=== PATIENT | female | born 1985 | race American Indian/Alaskan Native ===

== ENCOUNTER 2019-12-14 16:23 | Emergency (ER) | payer SELFPAY ==
[2019-12-14 16:55] LABS: Basophils # (Auto) 0.1 K/mm3 (0.0-0.1); Basophils % (Auto) 1.5 % (0.0-1.8); Eosinophils % (Auto) 0.3 % (0.0-4.3); Hemoglobin 14.4 gm/dl (10.1-14.3); Lymphocytes # (Auto) 2.2 K/mm3 (1.2-5.4); Lymphocytes % (Auto) 26.4 % (13.4-35.0); Mean Corpuscular HGB Conc 34 % (30-34); Mean Corpuscular Volume 86 fl (79-97); Monocytes # (Auto) 0.6 K/mm3 (0.0-0.8); Monocytes % (Auto) 6.7 % (0.0-7.3); Platelet Count 330 K/mm3 (140-440); Red Blood Count 4.89 M/mm3 (3.65-5.03)
[2019-12-14 17:16] LABS: Alanine Aminotransferase 52 units/L (7-56); Albumin 4.2 g/dL (3.9-5); BUN/Creatinine Ratio 8; Blood Urea Nitrogen 8 mg/dL (7-17); Calcium 9.5 mg/dL (8.4-10.2); Hemolysis Index 7
[2019-12-14] MEDS ORDERED: SODIUM CHLORIDE 0.9% 1000 ML 1,000 ML IV ONE (17:41)
[2019-12-14] MEDS ORDERED: METOCLOPRAMIDE 10 MG/2 ML INJ IV ONE (17:41)
[2019-12-14] MEDS ORDERED: POTASSIUM CHLORIDE ER 20 MEQ TAB PO ONE (17:41)
[2019-12-14] MEDS ORDERED: diphenhydrAMINE 50 MG/ML VIAL IV ONE (17:41)
--- NOTE | 2019-12-14 17:57 | Emergency Department Report ---
ED General Adult HPI - General Chief complaint: Nausea/Vomiting/Diarrhea Stated complaint: NAUSEA/FATIGUE/PREG Time Seen by Provider: 12/14/19 17:07 Source: patient Mode of arrival: Ambulatory Limitations: No Limitations - History of Present Illness Initial comments: Patient is a 34-year-old female presents emergency with complaints of generalized weakness that began 3 days ago. She has associated nausea and vomiting. She states that she is not able to tolerate p.o. intake. She states that a couple days ago she did have some vaginal spotting but that resolved. She states that she is also been constipated. She denies any diarrhea, fever, cough, abdominal pain, chest pain, shortness of breath. No past medical history. No allergies to medications. Last menstrual cycle October 12. She states that she believes she is approximately 2 months . She has not seen anyone for this and does not have an OB doctor. G:/P: 1/A: 2 - Related Data Previous Rx's Medication Instructions Recorded Last Taken Type Metoclopramide [Reglan] 10 mg PO Q8HR PRN #12 tab 12/14/19 Unknown Rx Nitrofurantoin [place]/M-Cryst 100 mg PO Q12HR #14 capsule 12/14/19 Unknown Rx [Macrobid CAP] Allergies Allergy/AdvReac Type Severity Reaction Status Date / Time No Known Allergies Allergy Unverified 12/14/19 16:25 ED Review of Systems ROS: Stated complaint: NAUSEA/FATIGUE/PREG Other details as noted in HPI Comment: All other systems reviewed and negative ED Past Medical Hx - Past Medical History Previous Medical History?: No - Surgical History Past Surgical History?: Yes Additional Surgical History: C section. ovarian cyst - Social History Smoking Status: Never Smoker Substance Use Type: None - Medications Home Medications: Home Medications Medication Instructions Recorded Confirmed Last Taken Type Metoclopramide [Reglan] 10 mg PO Q8HR PRN #12 tab 12/14/19 Unknown Rx Nitrofurantoin [place]/M-Cryst 100 mg PO Q12HR #14 capsule 12/14/19 Unknown Rx [Macrobid CAP] ED Physical Exam - General Limitations: No Limitations General appearance: alert, in no apparent distress - Head Head exam: Present: atraumatic, normocephalic - Eye Eye exam: Present: normal appearance - ENT ENT exam: Present: mucous membranes dry - Respiratory Respiratory exam: Present: normal lung sounds bilaterally. Absent: respiratory distress, wheezes, rales, rhonchi, stridor, chest wall tenderness, accessory muscle use, decreased breath sounds, prolonged expiratory - Cardiovascular Cardiovascular Exam: Present: regular rate, normal rhythm, normal heart sounds. Absent: systolic murmur, diastolic murmur, rubs, gallop - GI/Abdominal GI/Abdominal exam: Present: soft, normal bowel sounds. Absent: distended, tenderness, guarding, rebound, rigid - Neurological Exam Neurological exam: Present: alert, oriented X3 - Psychiatric Psychiatric exam: Present: normal affect, normal mood - Skin Skin exam: Present: warm, dry, intact ED Course Vital Signs 12/14/19 12/14/19 12/14/19 16:27 17:25 17:41 Temperature 98.6 F 98.8 F 98.8 F Pulse Rate 98 H 100 H 100 H Respiratory 20 16 16 Rate Blood Pressure 123/75 122/76 Blood Pressure 122/76 [Left] O2 Sat by Pulse 96 98 98 Oximetry 12/14/19 23:18 Temperature 98.3 F Pulse Rate 87 Respiratory 18 Rate Blood Pressure Blood Pressure 119/63 [Left] O2 Sat by Pulse 100 Oximetry ED Medical Decision Making - Lab Data Result diagrams: 12/14/19 16:45 12/14/19 16:45 Lab Results 12/14/19 12/14/19 12/14/19 Range/Units 16:45 16:45 16:45 WBC 8.3 (4.5-11.0) K/mm3 RBC 4.89 (3.65-5.03) M/mm3 Hgb 14.4 H (10.1-14.3) gm/dl Hct 42.0 (30.3-42.9) % MCV 86 (79-97) fl MCH 29 (28-32) pg MCHC 34 (30-34) % RDW 15.0 (13.2-15.2) % Plt Count 330 (140-440) K/mm3 Lymph % (Auto) 26.4 (13.4-35.0) % [place] % (Auto) 6.7 (0.0-7.3) % Eos % (Auto) 0.3 (0.0-4.3) % Baso % (Auto) 1.5 (0.0-1.8) % Lymph # (Auto) 2.2 (1.2-5.4) K/mm3 [place] # (Auto) 0.6 (0.0-0.8) K/mm3 Eos # (Auto) 0.0 (0.0-0.4) K/mm3 Baso # (Auto) 0.1 (0.0-0.1) K/mm3 Seg Neutrophils % 65.1 (40.0-70.0) % Seg Neutrophils # 5.4 (1.8-7.7) K/mm3 Sodium 132 L (137-145) mmol/L Potassium 3.1 L (3.6-5.0) mmol/L Chloride 91.0 L (98-107) mmol/L Carbon Dioxide 27 (22-30) mmol/L Anion Gap 17 mmol/L BUN 8 (7-17) mg/dL Creatinine 1.0 (0.6-1.2) mg/dL Estimated GFR > 60 ml/min BUN/Creatinine Ratio 8 % Glucose 111 H (65-100) mg/dL Calcium 9.5 (8.4-10.2) mg/dL Total Bilirubin 0.40 (0.1-1.2) mg/dL AST 24 (5-40) units/L ALT 52 (7-56) units/L Alkaline Phosphatase 59 (35-129) units/L Total Protein 7.4 (6.3-8.2) g/dL Albumin 4.2 (3.9-5) g/dL Albumin/Globulin Ratio 1.3 % Lipase 44 (13-60) units/L HCG, Quant [id number] H (0-4) mIU/mL Blood Type 12/14/19 Range/Units 19:12 WBC (4.5-11.0) K/mm3 RBC (3.65-5.03) M/mm3 Hgb (10.1-14.3) gm/dl Hct (30.3-42.9) % MCV (79-97) fl MCH (28-32) pg MCHC (30-34) % RDW (13.2-15.2) % Plt Count (140-440) K/mm3 Lymph % (Auto) (13.4-35.0) % [place] % (Auto) (0.0-7.3) % Eos % (Auto) (0.0-4.3) % Baso % (Auto) (0.0-1.8) % Lymph # (Auto) (1.2-5.4) K/mm3 [place] # (Auto) (0.0-0.8) K/mm3 Eos # (Auto) (0.0-0.4) K/mm3 Baso # (Auto) (0.0-0.1) K/mm3 Seg Neutrophils % (40.0-70.0) % Seg Neutrophils # (1.8-7.7) K/mm3 Sodium (137-145) mmol/L Potassium (3.6-5.0) mmol/L Chloride (98-107) mmol/L Carbon Dioxide (22-30) mmol/L Anion Gap mmol/L BUN (7-17) mg/dL Creatinine (0.6-1.2) mg/dL Estimated GFR ml/min BUN/Creatinine Ratio % Glucose (65-100) mg/dL Calcium (8.4-10.2) mg/dL Total Bilirubin (0.1-1.2) mg/dL AST (5-40) units/L ALT (7-56) units/L Alkaline Phosphatase (35-129) units/L Total Protein (6.3-8.2) g/dL Albumin (3.9-5) g/dL Albumin/Globulin Ratio % Lipase (13-60) units/L HCG, Quant (0-4) mIU/mL Blood Type A POSITIVE - Radiology Data Radiology results: report reviewed [facility]ST[facility] ULTRASOUND HISTORY: Vomiting clinical history of , spotting COMPARISON: None. TECHNIQUE: Routine transabdominal and transvaginal OB ultrasound performed. FINDINGS: Uterus: Mildly enlarged measuring 10.2 x 6.0 x 6.8 cm. Complex intrauterine area adjacent to the gestational sac with some vascular flow measuring 8.2 x 4.0 x 6.3 cm. Gestational Sac: Well-defined oval shape and intrauterine in location. Gestational sac measures 4.7 cm with estimated age of 9 weeks and 6 days. Yolk Sac: Normal in appearance. Fetus/Embryo: [place]-rump length of 1.9 cm, corresponding to an estimated gestational age of 8 weeks and 3 days. Embryonic/ anatomy is too small for evaluation. Embryonic/ cardiac activity: 180bpm Placenta: Too small for evaluation. Amniotic fluid volume: Subjectively appropriate for gestational age. Ovaries: The right ovary is normal in size and appearance with normal blood flow, measuring 3.4 x 3.6 x 2.0 cm. The left ovary is normal in size and appearance with normal blood flow, measuring 3.6 x 3.2 x 3.4 cm. Corpus luteum not definitively visualized. Additional findings: None. IMPRESSION 1. Early live intrauterine with estimated gestational age of 9 weeks and 1 day by ultrasound. 2. 8.2 cm intrauterine complex area adjacent to the gestational sac which could represent a large uterine fibroid. Recommend attention on follow-up and correlation with prior imaging if available. Signer Name: Tony Nicholson MD Signed: 12/14/2019 7:48 PM Workstation Name: [id number] Transcribed By: RAJAN Dictated By: TONY NICHOLSON III Electronically Authenticated By: TONY NICHOLSON III Signed Date/Time: 12/14/191947 DD/ 39 TD/TT: - Medical Decision Making Patient is a 34-year-old female presents emergency with complaints of generalized weakness that began 3 days ago. She has associated nausea and vomiting. She states that she is not able to tolerate p.o. intake. She states that a couple days ago she did have some vaginal spotting but that resolved. She states that she is also been constipated. She denies any diarrhea, fever, cough, abdominal pain, chest pain, shortness of breath. No past medical history. No allergies to medications. Last menstrual cycle October 12. She states that she believes she is approximately 2 months . She has not seen anyone for this and does not have an OB doctor. G:/P: 1/A: 2. Vitals are normal. No abdominal tenderness on exam, no guarding, no rebound, no rigidity, normal bowel sounds. Labs with evidence of dehydration and hypokalemia. hCG quant is [id number]. OB US: 1. Early live intrauterine with estimated gestational age of 9 weeks and 1 day by ultrasound. 2. 8.2 cm intrauterine complex area adjacent to the gestational sac which could represent a large uterine fibroid. Recommend attention on follow-up and correlation with prior imaging if available. UA without evidence of significant UTI, pt has no urinary symptoms. Patient given 1 L IV fluids, Reglan, Benadryl, kdur, Colace. Patient symptoms improved and she was feeling much better and ready to go home. Patient had no further episodes of vomiting while in the emergency [place] she was able to tolerate p.o. intake. Discussed all results with patient and answered questions. Patient given her ultrasound report, discussed the importance of close [facility] follow-up. - Differential Diagnosis Hyperemesis, dehydration, UTI, IUP, ectopic, molar , miscarriage Critical care attestation.: If time is entered above; I have spent that time in minutes in the direct care of this critically ill patient, excluding procedure time. ED Disposition Clinical Impression: Nausea/vomiting in , Dehydration, Hypokalemia Qualifiers: Weeks of gestation: 9 weeks Qualified Code(s): Z3A.09 - 9 weeks gestation of Uterine fibroid Qualifiers: Uterine leiomyoma location: unspecified location Qualified Code(s): D25.9 - Leiomyoma of uterus, unspecified Disposition: DC-01 TO HOME OR SELFCARE Is pt being admited?: No Does the pt Need Aspirin: No Condition: Stable Instructions: (ED), Hyperemesis Gravidarum (ED), Uterine Fibroids (ED) Additional Instructions: please take medication as prescribed. increase your water intake. may take tylenol as needed for any discomfort. please take a vitamin over the counter. follow up with [facility]. it is very important you have close follow up, take your ultrasound report with you. return to the emergency room for any new or worsening symptoms. Prescriptions: Nitrofurantoin [place]/M-Cryst [Macrobid CAP] 100 mg PO Q12HR #14 capsule Metoclopramide [Reglan] 10 mg PO Q8HR PRN #12 tab PRN Reason: Nausea And Vomiting Referrals: [facility] MD STEFANIE [Primary Care Provider] - 2-3 Days [facility] [Provider Group] - 2-3 Days [facility] [Provider Group] - 2-3 Days [facility] [Provider Group] - 2-3 Days [facility] [Provider Group] - 2-3 Days Time of Disposition: 21:09 Print Language: ROMANSH
[2019-12-14] MEDS ORDERED: DOCUSATE SODIUM 100 MG CAP PO ONE (19:08)
--- NOTE | 2019-12-14 19:53 | Ultrasound Report ---
[facility] OBSTETRIC ULTRASOUND HISTORY: Vomiting clinical history of , spotting COMPARISON: None. TECHNIQUE: Routine transabdominal and transvaginal OB ultrasound performed. FINDINGS: Uterus: Mildly enlarged measuring 10.2 x 6.0 x 6.8 cm. Complex intrauterine area adjacent to the ge stational sac with some vascular flow measuring 8.2 x 4.0 x 6.3 cm. Gestational Sac: Well-defined oval shape and intrauterine in location. Gestational sac measures 4.7 cm with estimated age of 9 weeks and 6 days. Yolk Sac: Normal in appearance. Fetus/Embryo: [place]-rump length of 1.9 cm, corresponding to an estimated gestational age of 8 weeks a nd 3 days. Embryonic/ anatomy is too small for evaluation. Embryonic/ cardiac activity: 180bpm Placenta: Too small for evaluation. Amniotic fluid volume: Subjectively appropriate for gestational age. Ovaries: The right ovary is normal in size and appearance with normal blood flow, measuring 3.4 x 3. 6 x 2.0 cm. The left ovary is normal in size and appearance with normal blood flow, measuring 3.6 x 3.2 x 3.4 cm. Corpus luteum not definitively visualized. Additional findings: None. IMPRESSION 1. Early live intrauterine with estimated gestational age of 9 weeks and 1 day by ultrasoun d. 2. 8.2 cm intrauterine complex area adjacent to the gestational sac which could represent a large [place] r[place] fibroid. Recommend attention on follow-up and correlation with prior imaging if available. Signer Name: Tony Nicholson MD Signed: 12/14/2019 7:48 PM Workstation Name: [id number]
[2019-12-14 20:57] LABS: Bacteria,Urine 1+ /HPF (Negative); Bilirubin,Urine NEG (Negative); Blood,Urine MOD (Negative); Color,Urine Yellow (Yellow); Mucus,Urine 3+ /HPF; Protein,Urine <15 mg/dL mg/dL (Negative)
[2019-12-14 23:19] VITALS: BP 119/63
== END 2019-12-14 23:19 | disposition home or self-care (01) ==
LOC: ED 16:23
DX: O99.281 Endocrine, nutritional and metabolic diseases complicating pregnancy, first trimester (principal); E86.0 Dehydration; E87.6 Hypokalemia; D25.9 Leiomyoma of uterus, unspecified; Z98.890 Other specified postprocedural states; Z3A.09 9 weeks gestation of pregnancy
CPT/HCPCS: 36415; 76801; 76817; 80053; 81001; 83690; 84702; 85025; 86900; 86901; 96361; 96375; 99284; J1200; J2765; J7030; 96365